=== PATIENT | male | born 1970 | race Caucasian/White ===

== ENCOUNTER 2022-04-21 16:11 | Outpatient (REF) | payer OTHER, BC, SELFPAY ==
--- NOTE | ~2022-04-21 | XR_ITS ---
EXAMINATION: XR HAND LEFT CLINICAL INFORMATION: Pain in the wrist. COMPARISON: None TECHNIQUE: Left hand, 3 views FINDINGS: No acute findings. Bones have normal alignment in the wrist and hand. No fracture, subluxation or focal soft tissue swelling. No evidence of an inflammatory arthropathy. No erosions or periostitis. There is negligible osteophyte formation of the first carpometacarpal joint and at some of the distal interphalangeal joints. XR/XR hand wrist LT IMPRESSION: * No fracture or malalignment in the left wrist or hand. 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
== END 2022-04-21 16:12 | disposition home or self-care (01) ==
LOC: HO.HMGCX 16:11
PROVIDERS: Visit Provider Physician Assistant
DX: M25.532 Pain in left wrist (principal)
CPT/HCPCS: 73110; 73130

== ENCOUNTER 2023-09-02 08:56 | Outpatient (AMB) | payer BC, SELFPAY ==
--- NOTE | 2023-09-02 09:00 | MHC.OFFVIS ---
Intake Vital Signs 09/02/23 09:01 Height 5 ft 11 in Weight 176 lb 5.917 oz BMI 24.6 BP 144/67 H Blood Pressure Location Lt brachial Position Sitting Pulse 72 Intake Visit Reasons: Colonoscopy Screening Intake Note: Mariusz presents in the office as a new patient colonoscopy screening. CC: He states that he is just due for a colonoscopy. Loan Secretary Required: No Allergies No Known Allergies Allergy (Verified 09/02/23 09:02) Medication List - Last Reconciled 09/02/23 by Chelsi Dunbar PA-C No Known Home Meds HPI HPI Comments History of Present Illness Details A 53-year-old male referred for screening colonoscopy He had a colonoscopy about 10 years ago -Dr. Bautista- for rectal bleeding- He is a bit anxious- about anesthesia- Bowels are normal Appetite good, he does drink alcohol, he takes no medication No nausea, vomiting, hematemesis, hematochezia fever or chills PFSH Surgical History Hx of colonoscopy Social History (Updated 09/02/23 @ 09:21 by Chelsi Dunbar PA-C) Household Members: Spouse and Children Housing: House Alcohol intake: current Patient Tobacco Use Status: Never used Tobacco e-Cigarette/Vaping Use: Never Used Current occupational status: employed Current occupation: Chiropractor Cognitive needs: No Hearing needs: No Vision needs: No Review of Systems Const All systems reviewed & are unremarkable except as noted in HPI and below Card Denies chest pain and Denies dyspnea Resp Denies dyspnea GI Denies abdominal pain, Denies hematochezia, Denies change in bowel habits, Denies heartburn, Denies nausea and Denies vomiting Psych Reports anxiety Physical Exam Vital Signs: Last Vital Signs Pulse 72 09/02/23 09:01 BP 144/67 H 09/02/23 09:01 BMI result Body Mass Index 24.6 Const General: cooperative, healthy appearing, comfortable and no acute distress Limitations: no limitations Resp Effort & Inspection: normal respiratory effort and able to speak in complete sentences Auscultation: clear to auscultation bilaterally, no crackles, no rales and no rhonchi Cardio Rate: regular rate Rhythm: regular rhythm Heart sounds: S1 normal heart sound present and S2 normal heart sound present GI Palpation (GI): Soft to palpation and nontender Auscultation: normal bowel sounds Extrem General: Yes full ROM Psych Appearance: grossly normal and well kempt Mental Status: mental status grossly normal Speech and movement: Normal speech and movement present Affect: normal affect and Anxious affect present Attitude: cooperative Thought process: Normal thought process present Thought content: Normal thought content present Insight: Good insight present (Psych) Judgement: Good judgement present (Psych) Results Reviewed Results Reviewed: EKG- 2021- NSR- Assessment & Plan Assessment & Plan (1) Encounter for screening colonoscopy: Comment: Very pleasant Gent referred for colon screening no GI complaints-anxious Code(s): Z12.11 - Encounter for screening for malignant neoplasm of colon Plan: Screening colonoscopy (2) Anxiety, generalized: Comment: Anxiety a regard to anesthesia Code(s): F41.1 - Generalized anxiety disorder Plan: Reassured,- Anesthesiologist will speak to him prior to administering medications Plan Screening colonoscopy MiraLax Gatorade prep Orders: Orders Colonoscopy - GI Use Only Today Z12.11 - Encounter for screening for malignant neoplasm of colon Thyroid Stimulating Hormone Today F41.1 - Generalized anxiety disorder, Z12.11 - Encounter for screening for malignant neoplasm of colon Lipid Panel Today F41.1 - Generalized anxiety disorder, R03.0 - Elevated blood-pressure reading, without diagnosis of hypertension, Z12.11 - Encounter for screening for malignant neoplasm of colon Complete Blood Count Auto Diff Today F41.1 - Generalized anxiety disorder, Z12.11 - Encounter for screening for malignant neoplasm of colon Comprehensive Met. Panel Today F41.1 - Generalized anxiety disorder, Z12.11 - Encounter for screening for malignant neoplasm of colon Prostate Specific Antigen Scr Today F41.1 - Generalized anxiety disorder, Z12.11 - Encounter for screening for malignant neoplasm of colon Medications: New bisacodyl (Dulcolax (bisacodyl)) Day before procedure, prep day Take 4 tablets by mouth upon awakening followed by large glass of water 20 mg (4 x 5 mg) PO ONCE 4 tabs 0RF colonoscopy prep 1 day Z12.11 - Encounter for screening for malignant neoplasm of colon polyethylene glycol 3350 (Miralax) Take as directed by mouth the day before your procedure. 238 grams PO ONCE 238 grams 0RF laxative effect 1 day Patient Instructions: Pleasant somewhat anxious 53-year-old male due for screening colonoscopy Discussed procedure, rare risks, need for escorted due to anesthesia-reassured, as there expertise will serve him well MiraLax Gatorade prep, reviewed, literature given Encouraged to call questions or concerns Appreciate the opportunity assist in care this pleasant Gent Coding Level of Care Code New Pt Level 3 (43518) Diagnoses Encounter for screening colonoscopy Z12.11 Anxiety, generalized F41.1 Time Spent (min) 30
[2023-09-02 09:01] VITALS: BP 144/67; PULSE 72; BMI 24.6
== END 2023-09-02 09:53 | disposition home or self-care (01) ==
PROVIDERS: PCP Internal Medicine; Visit Provider Physician Assistant
DX: Z01.818 Encounter for other preprocedural examination (principal); Z12.11 Encounter for screening for malignant neoplasm of colon; F41.1 Generalized anxiety disorder
CPT/HCPCS: S0285

== ENCOUNTER → 2023-09-02 08:56 | Outpatient (BNVA) | payer BC, SELFPAY | PROVIDERS: PCP Internal Medicine; Visit Provider Physician Assistant ==

== ENCOUNTER 2023-12-08 13:54 | Outpatient (AMB) | payer BC, SELFPAY ==
[2023-12-08 14:03] VITALS: BP 136/78; PULSE 84; O2SAT 96; BMI 25.0
--- NOTE | 2023-12-08 14:03 | MHC.PC.OV ---
Vital Signs 12/08/23 14:03 Height 5 ft 11 in Weight 179 lb 6 oz BMI 25.0 BP 136/78 Blood Pressure Location Lt brachial Position Sitting Pulse 84 Pulse Source Pulse Oximeter Pulse Oximetry (%) 96 Oxygen Delivery Method Room Air Intake Visit Reasons: Annual Physical Allergies No Known Allergies Allergy (Verified 12/08/23 14:04) Medication List - Last Reconciled 12/08/23 by Tj Santos MD bisacodyl (Dulcolax (bisacodyl)) 20 mg (4 x 5 mg) PO ONCE 1 day polyethylene glycol 3350 (Miralax) 238 grams PO ONCE 1 day Tobacco use date assessed: 12/08/23 Dental Screening Dental Screen Date: 12/08/23 Did you have a dental visit in the last 12 months?: Yes Did you have a dental problem in the last 6 months where you did not have access to dental care?: No Was dental information given to patient?: Patient has dentist HPI Annual Physical HPI Details Patient is a 53-year-old gentleman came in today for physical examination Offer no complaints Patient had pre colonoscopy visit with the gastroenterology in August I see that labs were ordered he will be going for that soon He want to discuss with his insurance company 1st as he has a high co-pay Blood pressure is 136/78 I would recommend low-salt diet BMI is 25 other vital signs are within normal range Patient had tetanus vaccine 3 years ago He will return in 1 year for physical exam [facility] Surgical History Hx of colonoscopy Social History Household Members: Spouse and Children Housing: House Alcohol intake: current Patient Tobacco Use Status: Never used Tobacco e-Cigarette/Vaping Use: Never Used Current occupational status: employed Current occupation: Chiropractor Cognitive needs: No Hearing needs: No Vision needs: No Questionnaire PHQ-9 Over the last 2 weeks, how often have you been bothered by any of the following problems? 1. Little interest or pleasure in doing things: not at all 2. Feeling down, depressed, or hopeless: several days 3. Trouble falling or staying asleep, or sleeping too much: not at all 4. Feeling tired or having little energy: several days 5. Poor appetite or overeating: not at all 6. Feeling bad about yourself - or that you are a failure or have let yourself or your family down: several days 7. Trouble concentrating on things, such as reading the newspaper or watching television: not at all 8. Moving or speaking so slowly that other people could have noticed. Or the opposite - being so fidgety or restless that you have been moving around a lot more than usual: not at all 9. Thoughts that you would be better off or of hurting yourself in some way: not at all Total score: 3 Depression Screening Interpretation: Negative Depression Screening Done: Yes 39730 - PHQ-9 Billing: Yes Source: Developed by Drs. Thai Leos, Mariela Mendoza, Gagan White and colleagues, with an educational annita from [employer]. Thrive Questionnaire Date Thrive assessed: 12/08/23 I am a: Patient What is your living situation today?: I have a steady place to live Within the past 12 months, did the food you bought not last and you didn't have the money to get more?: Never true Within the past 12 months, did you worry whether your food would run out before you got money to buy more?: Never true Do you have trouble paying for medicines?: No Do you have trouble getting transportation to medical appointments?: No Do you have trouble paying your heating and electricity bill?: No Do you have trouble taking care of your child, family member or friend?: No Do you have trouble with day-to-day activities such as bathing, preparing meals, shopping, managing finances, etc.?: No Are you currently unemployed and looking for a job?: No Are you interested in more education?: No Please select the resources that you would like help with: None Currently or been in a relationship where the following occur: no concerns reported THRIVE Score: 0 AUDIT C Alcohol Use Questionnaire (AUDIT-C) 1. How often do you have a drink containing alcohol?: 4 or more times a week 2. How many drinks containing alcohol do you have on a typical day when you are drinking?: 3 or 4 3. How often do you have six or more drinks on one occasion?: Never Total Score: 5 Score Reviewed/Action Taken: Yes PNAKAJ-7 AMB Questionnaire PANKAJ-7 Date PANKAJ - 7 assessed: 12/08/23 Feeling nervous, anxious, or on edge: 3 = Nearly every day Not being able to stop or control worryin = Not at all Worrying too much about different things: 0 = Not at all Trouble relaxin = Several days Being so restless that it is hard to sit still: 0 = Not at all Becoming easily annoyed or irritable: 1 = Several days Feeling afraid as if something awful might happen: 0 = Not at all Total PANKAJ-7 score (0-4 normal; 5-9 mild; 10-14 moderate; 15-21 severe): 5 Source: Developed by Drs. Thai Leos, Mariela Mendoza, Gagan White and colleagues, with an educational annita from [employer]. PANKAJ-7 Assessment Billing PANKAJ-7 Assessment Tool: PANKAJ-7 Assessment 95488 Review of Systems Const Denies chills, Denies fever(s) and Denies headache(s) Eyes Denies blurry vision ENT Denies headache(s), Denies nasal discharge, Denies nasal obstruction, Denies odynophagia and Denies sinus pain Card Denies chest pain at rest and Denies chest pain with activity Resp Denies cough and Denies hemoptysis GI Denies diarrhea, Denies odynophagia, Denies vomiting and Denies hematemesis Reports as per HPI Musc Denies abnormal gait Skin/Breast Reports as per HPI Neuro Denies Neuro-related abnormal movements, Denies Abnormal speech present, Denies abnormal gait, Denies headache(s) and Denies Sensory deficit (Neuro) Psych Denies mood swings and Denies paranoia Endo Reports as per HPI Arie/Lymph Reports as per HPI Aller/Immun Reports as per HPI Physical exam (Primary Care) Vital Signs: Last Vital Signs Pulse 84 12/08/23 14:03 BP 136/78 12/08/23 14:03 Pulse Ox 96 12/08/23 14:03 Oxygen Delivery Method Room Air 12/08/23 14:03 BMI result Body Mass Index 25.0 Tobacco/Smoking Status: Tobacco use Status Tobacco use date assessed 12/08/23 12/08/23 14:05 Patient Tobacco Use Status Never used Tobacco 12/08/23 14:05 e-Cigarette/Vaping Use Never Used 12/08/23 14:05 PHQ-9: PHQ-9 Score PHQ-9: Total score 3 12/08/23 14:10 Depression Screening Interpretation: Negative Thrive Assessment: Date of Thrive Assessment Date Thrive assessed 12/08/23 12/08/23 14:10 Currently or been in a relationship where the following occur: no concerns reported Const General: cooperative, comfortable and no acute distress Orientation/consciousness: patient oriented x3 HENMT Head: Yes normocephalic and Yes atraumatic Eyes General: appearance normal, both eyes and all related structures Pupils: Equal, round and reactive pupils present EOM: EOMs intact bilaterally Neck Neck: Yes supple and No lymphadenopathy Thyroid: Thyroid normal Lymphatic: no lymphadenopathy noted Resp Effort & Inspection: normal respiratory effort and able to speak in complete sentences Auscultation: clear to auscultation bilaterally Cardio Heart sounds: S1 normal heart sound present and S2 normal heart sound present GI Palpation (GI): Soft to palpation and nontender Auscultation: normal bowel sounds General: Yes no CVA tenderness Back/Spine/Pelvis Back: no CVA tenderness Skin General skin exam: elasticity normal and turgor normal Neuro General: patient oriented x3 and gait normal Cranial nerves: Yes Equal, round and reactive pupils present Speech: No Abnormal speech present Sensory Exam: No Sensory deficit (Neuro) Coordination: tandem gait normal and Romberg test negative Extrem General: Yes normal exam except as noted and No edema Assessment and Plan Assessment & Plan (1) Encounter for general adult medical examination with abnormal findings: Code(s): Z00.01 - Encounter for general adult medical examination with abnormal findings (2) Pre-hypertension: Code(s): R03.0 - Elevated blood-pressure reading, without diagnosis of hypertension Plan Patient is a 53-year-old gentleman came in today for physical examination Offer no complaints Patient had pre colonoscopy visit with the gastroenterology in August I see that labs were ordered he will be going for that soon He want to discuss with his insurance company 1st as he has a high co-pay Blood pressure is 136/78 I would recommend low-salt diet BMI is 25 other vital signs are within normal range I would recommend to stop drinking alcohol or at least cut down Patient had tetanus vaccine 3 years ago He will return in 1 year for physical exam Coding Level of Care Code Est Pt Prev Care 40-64y(61528) Diagnoses Encounter for general adult medical examination with abnormal findings Z00.01 Pre-hypertension R03.0 Additional Codes PAKNAJ-7 Assessment Billing - PANKAJ-7 Assessment Tool: PANKAJ-7 Assessment [id number] ([id number])
== END 2023-12-08 14:27 | disposition home or self-care (01) ==
PROVIDERS: PCP Internal Medicine; Visit Provider Internal Medicine
DX: Z00.01 Encounter for general adult medical examination with abnormal findings (principal); R03.0 Elevated blood-pressure reading, without diagnosis of hypertension
CPT/HCPCS: 99396